=== PATIENT | male | born 1950 | race Hispanic/Latino ===

== ENCOUNTER 2025-02-13 10:44 | Inpatient (IN) | payer OTHER, SELFPAY ==
[2025-02-13 11:58] LABS: Absolute Lymphocytes (CBC) 1.0 K/uL (0.7-4.9); Hematocrit 31.2 % (39.6-49.0); Hemoglobin 8.5 g/dL (13.6-17.9); MCH 22.5 pg (27.0-35.0); MCHC 27.1 g/dL (32.0-36.0); MCV 83.1 fL (80-100); MPV 9.7 fL (7.6-11.3); Nucleated RBC Absolute Count 0.0 (0-0); Nucleated Red Blood Cells % 0.1 % (0-0); RBC Red Blood Cell Count 3.75 M/uL (4.33-5.43); White Blood Count 6.80 thou/uL (4.3-10.9)
[2025-02-13] MEDS ORDERED: NA CHLORIDE 0.9% 1,000 ML ONE ×2 (12:03→12:47)
[2025-02-13 12:12] LABS: Anion Gap 36.6 mEq/L (5.0-15.0); BUN Blood Urea Nitrogen 23 mg/dL (7-18); Glucose Level 1015 mg/dL (74-106); Potassium 5.6 mEq/L (3.5-5.1); Troponin High Sensitivity 9.3 pg/mL (<58.9)
[2025-02-13] MEDS ORDERED: GLUCAGON 1 MG/VIAL IM PRN (12:39)
[2025-02-13] MEDS ORDERED: D50W 25 GM/50 ML SYRINGE IV PRN (12:39)
--- NOTE | 2025-02-13 12:39 | ER ---
Nurse's Notes [facility] Name: Jasbir Valdez Age: 74 yrs Sex: Male : 1950 Arrival Date: 02/13/2025 Time: 10:44 Bed 8 Private MD: Diagnosis: Acute kidney failure, unspecified;Diabetes mellitus due to underlying condition with ketoacidosis without coma;Weakness Presentation: 02/13 11:39 Chief complaint: Patient states: pt was found by ABIODUN in bed, pt stated he had been kb4 there for 2 days, weak, and unable to do anything. Coronavirus screen: At this time, unable to obtain information related to travel outside the [place] Ebola Screen: No symptoms or risks identified at this time. Initial Sepsis Screen: Does the patient meet any 2 criteria? No. Patient's initial sepsis screen is negative. Does the patient have a suspected source of infection? No. Patient's initial sepsis screen is negative. Risk Assessment: Do you want to hurt yourself or someone else? Patient reports no desire to harm self or others. Onset of symptoms was February 11, 2025. 11:39 Method Of Arrival: EMS: [facility] kb4 11:39 Acuity: LEEANN 3 kb4 11:39 Care prior to arrival: Medication(s) given: Normal saline infusion, 1000 mL, IV kb4 initiated. 20 GA, in the left antecubital area. Triage Assessment: 11:49 General: Appears distressed, comfortable, Behavior is calm, cooperative. Pain: Denies kb4 pain. EENT:. Neuro: Level of Consciousness is awake, alert, obeys commands, Oriented to person, place, time, situation. Cardiovascular: Patient's skin is warm and dry. Respiratory: Airway is patent Respiratory effort is even, unlabored, Respiratory pattern is symmetrical, tachypnea. GI: Abdomen is round Bowel sounds present X 4 quads. :. Derm: Skin with poor turgor Skin is dry, Skin is pink, warm \T\ dry. Skin temperature is warm. Historical: - Allergies: 11:49 No Known Allergies; kb4 - PMHx: 11:49 Diabetes mellitus; kb4 - Immunization history:: Adult Immunizations unknown. - Infectious Disease History:: Denies. - Social history:: Smoking status: Patient denies any tobacco usage or history of. - Family history:: not pertinent. Screenin:08 [facility] ED Fall Risk Assessment (Adult) History of falling in the last 3 months, kb4 including since admission No falls in past 3 months (0 pts) Confusion or Disorientation No (0 pts) Intoxicated or Sedated No (0 pts) Impaired Gait No (0 pts) Mobility Assist Device Used No (0 pt) Altered Elimination Yes (1 pt) Score/Fall Risk Level 0 - 2 = Low Risk. Abuse screen: Denies threats or abuse. Denies injuries from another. Nutritional screening: No deficits noted. Tuberculosis screening: No symptoms or risk factors identified. Assessment: 11:51 Reassessment: see triage. kb4 13:30 Reassessment: Patient and/or family updated on plan of care and expected duration. Pain kb4 level reassessed. Patient is alert, oriented x 3, equal unlabored respirations, skin warm/dry/pink. insulin drip started - see med record. 14:37 Reassessment: Patient and/or family updated on plan of care and expected duration. Pain kb4 level reassessed. Patient is alert, oriented x 3, equal unlabored respirations, skin warm/dry/pink. resting in bed. 15:30 Reassessment: Patient and/or family updated on plan of care and expected duration. Pain kb4 level reassessed. Patient is alert, oriented x 3, equal unlabored respirations, skin warm/dry/pink. report called to ICU floor. Vital Signs: 11:39 BP 108 / 46; Pulse 75; Resp 32; Temp 97.7; Pulse Ox 100% on R/A; Weight 59.87 kg; kb4 Height 5 ft. 10 in. ; Pain 0/10; 12:00 BP 103 / 35; Pulse 71; Resp 28; Pulse Ox 100% on 4 lpm NC; kb4 13:00 BP 116 / 46; Pulse 79; Resp 30; Pulse Ox 100% on 4 lpm NC; kb4 14:36 BP 119 / 42; Pulse 90; Resp 28; Pulse Ox 100% on 4 lpm NC; kb4 11:39 Body Mass Index 18.94 (59.87 kg, 177.8 cm) kb4 11:39 Pain Scale: Adult kb4 NIH Stroke Scale Scores: 12:34 NIHSS Score: 0 minh ED Course: 11:15 Patient arrived in ED. [email or web address] 11:16 Alexys Murrell MD is Attending Physician. minh 11:29 Lindsay Galvan, RN is Primary Nurse. kb4 11:49 Triage completed. kb4 12:00 Inserted saline lock: 20 gauge in right upper arm, using aseptic technique. kb4 12:38 Jose Armando Ragsdale MD is Hospitalizing Provider. minh 12:45 XRAY Chest (1 view) In Process Unspecified. EDMS 12:59 CT Chest Abdomen Pelvis W/O Contrast In Process Unspecified. EDMS 16:07 Patient admitted, IV remains in place. kb4 16:07 No provider procedures requiring assistance completed. kb4 16:08 Patient has correct armband on for positive identification. Provided Education on: need kb4 for scott . 16:08 Arm band placed on. kb4 Administered Medications: 11:35 CANCELLED (Physician Discretion): ns 0.9% 500 ml 500 ml IV at 1 bolus once; to be given iw as a bolus over 30 minutes 12:11 Drug: NS 0.9% IV 1000 ml IV at 1000 ml once; to be given as a bolus over 60 minutes ap3 Route: IV; Rate: 1000 ml; Site: left forearm; 14:00 Follow up: Response: No adverse reaction kb4 15:00 Follow up: Response: No adverse reaction kb4 16:05 Follow up: IV Status: Completed infusion kb4 13:30 Drug: Insulin Drip - (Insulin Regular Human IVP 100 units, NS 0.9% IV 100 ml) IV at 5 kb4 units/hr continuous; Standard concentration 1unit/ml; Dose for DKA is 0.1 units/kg/hr {Co-Signature: aa5 (Mary Arellano RN).} {Note: started at 5 units/hr per MD .} Route: IV; Rate: 5 units/hr; Site: right upper arm; 15:00 Follow up: Increased rate to 10units/hr per protocol, glucose increased. aa5 13:33 Drug: Rocephin IV 1 grams IV at per protocol once; Given slow IV push per pharmacy kb4 instructions Route: IV; Rate: per protocol; Site: left antecubital; 16:05 Follow up: IV Status: Completed infusion kb4 13:34 Drug: Famotidine IVP 20 mg IVP once; dilute with 10 mL 0.9% NaCl; give over 2 minutes kb4 Route: IVP; Site: left antecubital; 14:00 Follow up: Response: No adverse reaction kb4 15:04 Drug: Insulin Regular Human IVP 6 units IVP once {Co-Signature: ap3 (Gerri Geronimo RN).} Route: IVP; Site: right upper arm; 16:04 Follow up: Response: No adverse reaction kb4 Medication: 16:08 VIS not applicable for this client. kb4 Intake: Outcome: 12:39 Decision to Hospitalize by Provider. minh 16:07 Admitted to ICU accompanied by nurse, via stretcher, on monitor, with chart, kb4 16:07 Condition: stable 16:07 Instructed on the need for admit, 16:09 Patient left the ED. kb4 NIH Stroke Scale - NIH Stroke Score Date: 02/13/2025 Time: 12:34 Total Score = 0 10. Dysarthria (speech clarity - read or repeat words) - 0(Normal) 11. Extinction and Inattention (visual/tactile/auditory/spatial/personal) - 0(No abnormality) 1a. Level of Consciousness (LOC) - 0(Alert) 1b. Level of Consciousness (LOC) (Month \T\ Age) - 0(Both) 1c. LOC Commands (Open \T\ Closes Eyes/[employer] Dean) - 0(Both) 2. Best Gaze (Lateral Gaze Paresis) - 0(Normal) 3. Visual Field Loss - 0(No visual loss) 4. Facial Palsy - 0(Normal) 5a. Left Arm: Motor (10-second hold) - 0(No drift) 5b. Right Arm: Motor (10-second hold) - 0(No drift) 6a. Left Leg: Motor (5-second hold - always test supine) - 0(No drift) 6b. Right Leg: Motor (5-second hold - always test supine) - 0(No drift) 7. Limb Ataxia (finger/nose \T\ heel/cardona - test with eyes open) - 0(Absent) 8. Sensory Loss (pinprick arms/legs/face) - 0(Normal) 9. Best Language: Aphasia (description/naming/reading) - 0(No aphasia) Initials: minh Signatures: Dispatcher [employer] Alexys Carroll MD MD cha Calderon, Audri RN RN aa5 Gerri Geronimo RN RN ap3 Lindsay Galvan RN RN kb4 Reyna Bronson cj3 Anushka Yang RN, Audri RN aa5 Gerri Geronimo RN ap3 Corrections: (The following items were deleted from the chart) 13:34 13:33 Rocephin IV 1 grams IV at per protocol in right antecubital kb4 kb4 13:35 13:34 Insulin Drip - (Insulin Regular Human IVP 100 units, NS 0.9% IV 100 ml) kb4 IV at 5 units/hr in right upper arm; started at 5 units/hr per MD kb4
--- NOTE | 2025-02-13 12:40 | EDPHYS ---
Physician Documentation [facility] Name: Jasbir Valdez Age: 74 yrs Sex: Male : 1950 Arrival Date: 02/13/2025 Time: 10:44 Bed 8 Private MD: ED Physician Alexys Murrell HPI: 02/13 12:30 This 74 yrs old Male presents to ER via EMS with complaints of General minh Weakness. 12:30 The patient or guardian reports hyperglycemia. Onset: The symptoms/episode minh began/occurred 3 day(s) ago. Associated signs and symptoms: Pertinent positives: nausea, polyuria. high glucose, weak , in bed x 3 days. The patient has experienced near-syncope, almost passed out, felt generally weak. Duration: This was a single episode, that is still ongoing. Associated injury: The patient did not suffer any apparent associated injury. Historical: - Allergies: 11:49 No Known Allergies; kb4 - PMHx: 11:49 Diabetes mellitus; kb4 - Immunization history:: Adult Immunizations unknown. - Infectious Disease History:: Denies. - Social history:: Smoking status: Patient denies any tobacco usage or history of. - Family history:: not pertinent. ROS: 12:30 Constitutional: Negative for fever, chills, and weight loss, Eyes: Negative for injury, minh pain, redness, and discharge, ENT: Negative for injury, pain, and discharge, Neck: Negative for injury, pain, and swelling, Cardiovascular: Negative for chest pain, palpitations, and edema, Respiratory: Negative for shortness of breath, cough, wheezing, and pleuritic chest pain, Abdomen/GI: Negative for abdominal pain, nausea, vomiting, diarrhea, and constipation, Back: Negative for injury and pain, : Negative for injury, bleeding, discharge, and swelling, MS/Extremity: Negative for injury and deformity, Skin: Negative for injury, rash, and discoloration, Psych: Negative for depression, anxiety, suicide ideation, homicidal ideation, and hallucinations, Allergy/Immunology: Negative for hives, rash, and allergies, Hematologic/Lymphatic: Negative for swollen nodes, abnormal bleeding, and unusual bruising, 12:30 Neuro: Positive for dizziness, weakness, 12:30 Endocrine: Positive for polyuria, weight loss, Exam: 12:30 Constitutional: This is a well developed, well nourished patient who is awake, alert, minh and in no acute distress. Head/Face: Normocephalic, atraumatic. Eyes: Pupils equal round and reactive to light, extra-ocular motions intact. Lids and lashes normal. Conjunctiva and sclera are non-icteric and not injected. Cornea within normal limits. Periorbital areas with no swelling, redness, or edema. ENT: Nares patent. No nasal discharge, no septal abnormalities noted. Tympanic membranes are normal and external auditory canals are clear. Oropharynx with no redness, swelling, or masses, exudates, or evidence of obstruction, uvula midline. Mucous membranes moist. Neck: Trachea midline, no thyromegaly or masses palpated, and no cervical lymphadenopathy. Supple, full range of motion without nuchal rigidity, or vertebral point tenderness. No Meningismus. Chest/axilla: Normal chest wall appearance and motion. Nontender with no deformity. No lesions are appreciated. Cardiovascular: Regular rate and rhythm with a normal S1 and S2. No gallops, murmurs, or rubs. Normal PMI, no JVD. No pulse deficits. Respiratory: Lungs have equal breath sounds bilaterally, clear to auscultation and percussion. No rales, rhonchi or wheezes noted. No increased work of breathing, no retractions or nasal flaring. Abdomen/GI: Soft, non-tender, with normal bowel sounds. No distension or tympany. No guarding or rebound. No evidence of tenderness throughout. Back: No spinal tenderness. No costovertebral tenderness. Full range of motion. Male : Normal genitalia with no discharge or lesions. Skin: Warm, dry with normal turgor. Normal color with no rashes, no lesions, and no evidence of cellulitis. MS/ Extremity: Pulses equal, no cyanosis. Neurovascular intact. Full, normal range of motion., bilateral aka Neuro: Awake and alert, GCS 15, oriented to person, place, time, and situation. Cranial nerves II-XII grossly intact. Motor strength 5/5 in all extremities. Sensory grossly intact. Cerebellar exam normal. Normal gait. Psych: Awake, alert, with orientation to person, place and time. Behavior, mood, and affect are within normal limits. 12:30 ECG was reviewed by the Attending Physician. Vital Signs: 11:39 BP 108 / 46; Pulse 75; Resp 32; Temp 97.7; Pulse Ox 100% on R/A; Weight 59.87 kg; kb4 Height 5 ft. 10 in. ; Pain 0/10; 12:00 BP 103 / 35; Pulse 71; Resp 28; Pulse Ox 100% on 4 lpm NC; kb4 13:00 BP 116 / 46; Pulse 79; Resp 30; Pulse Ox 100% on 4 lpm NC; kb4 14:36 BP 119 / 42; Pulse 90; Resp 28; Pulse Ox 100% on 4 lpm NC; kb4 11:39 Body Mass Index 18.94 (59.87 kg, 177.8 cm) kb4 11:39 Pain Scale: Adult kb4 NIH Stroke Scale Scores: 12:34 NIHSS Score: 0 minh MDM: 11:16 Medical Screening Exam initiated minh 12:33 Differential diagnosis: diabetes insipidus, DKA, hyperglycemia. Differential Diagnosis minh altered mental status, sepsis, flu. Differential Diagnosis: cardiac arrhythmia, emotional response, idiopathic syncope, pseudo seizure, seizure, sepsis, transient ischemic attack, vasovagal episode. Data reviewed: vital signs, nurses notes, lab test result(s), EKG, radiologic studies, plain films. Consideration of Admission/Observation Patient was admitted/placed on observation. Escalation of care including admission/observation considered. I considered the following discharge prescriptions or medication management in the emergency department Medications were administered in the Emergency Department. See MAR. Independent interpretation of the following test(s) in the Emergency Department EKG: See my EKG interpretation above. Test considered but Not performed: MRI: no mri brain. 02/13 11:29 Order name: Basic Metabolic Panel; Complete Time: 12:23 kb4 02/13 11:29 Order name: CBC with Diff; Complete Time: 12:23 kb4 02/13 11:29 Order name: Troponin HS; Complete Time: 12:23 4 02/13 11:34 Order name: Lipase; Complete Time: 15:13 [facility] 02/13 11:34 Order name: UA Rfx Stephen Cult if indicated [facility] 02/13 11:44 Order name: Glucose, Ancillary Testing; Complete Time: 11:57 EDMS 02/13 12:22 Order name: ABG; Complete Time: 15:13 [facility] 02/13 12:22 Order name: BETA HYDROXYBUTYRATE; Complete Time: 15:13 [facility] 02/13 12:27 Order name: Blood Culture Adult (2) [facility] 02/13 12:27 Order name: Lactate w/ 2H reflex if indic.; Complete Time: 15:13 minh 02/13 13:09 Order name: Basic Metabolic Panel EDMS 02/13 13:09 Order name: Basic Metabolic Panel; Complete Time: 15:13 EDMS 02/13 13:09 Order name: Basic Metabolic Panel EDMS 02/13 13:09 Order name: Basic Metabolic Panel EDMS 02/13 13:09 Order name: Basic Metabolic Panel EDMS 02/13 13:09 Order name: Basic Metabolic Panel EDMS 02/13 13:09 Order name: Basic Metabolic Panel EDMS 02/13 13:09 Order name: Calcium Level EDMS 02/13 13:09 Order name: Calcium Level EDMS 02/13 13:09 Order name: Calcium Level EDMS 02/13 13:09 Order name: Calcium Level EDMS 02/13 13:09 Order name: Calcium Level EDMS 02/13 13:09 Order name: Calcium Level EDMS 02/13 13:09 Order name: Calcium Level EDMS 02/13 13:09 Order name: CBC with Automated Diff EDMS 02/13 13:09 Order name: CBC with Automated Diff EDMS 02/13 13:09 Order name: CBC with Automated Diff EDMS 02/13 13:09 Order name: Lipid Profile EDMS 02/13 13:09 Order name: Lipid Profile EDMS 02/13 13:09 Order name: Magnesium EDMS 02/13 13:09 Order name: Magnesium EDMS 02/13 13:09 Order name: Magnesium EDMS 02/13 13:09 Order name: Magnesium EDMS 02/13 13:09 Order name: Phosphorus EDMS 02/13 13:09 Order name: Phosphorus EDMS 02/13 13:09 Order name: Phosphorus EDMS 02/13 13:09 Order name: Phosphorus EDMS 02/13 13:09 Order name: CBC with Automated Diff EDMS 02/13 13:09 Order name: Osmolality, Serum EDMS 02/13 13:09 Order name: Osmolality, Serum EDMS 02/13 13:09 Order name: Osmolality, Serum EDMS 02/13 13:09 Order name: Osmolality, Serum EDMS 02/13 13:23 Order name: Glucose kb4 02/13 13:56 Order name: Hemoglobin A1c EDMS 02/13 14:18 Order name: Ghost Lactate-NO COLLECT Timer [facility] 02/13 14:39 Order name: Glucose sp 02/13 11:29 Order name: XRAY Chest (1 view); Complete Time: 15:13 kb4 02/13 12:24 Order name: CT Chest Abdomen Pelvis W/O Contrast; Complete Time: 15:13 minh 02/13 11:29 Order name: EKG; Complete Time: 11:30 kb4 02/13 13:09 Order name: CONS Diabetic Education Consul [facility] 02/13 13:09 Order name: Dietitian Consult [facility] 02/13 11:29 Order name: Cardiac monitoring; Complete Time: 11:29 kb4 02/13 11:29 Order name: EKG - Nurse/Tech; Complete Time: 11:29 kb4 02/13 11:29 Order name: IV Saline Lock; Complete Time: 11:29 kb4 02/13 11:29 Order name: Labs collected and sent; Complete Time: 11:35 kb4 02/13 11:29 Order name: O2 Per Protocol; Complete Time: 11:29 kb4 02/13 11:29 Order name: O2 Sat Monitoring; Complete Time: 11:29 kb4 02/13 12:23 Order name: IV Saline Lock - Large Bore; Complete Time: 12:30 minh EC:30 Rate is 76 beats/min. Rhythm is regular. QRS [place] is Normal. NM interval is normal. QRS minh interval is normal. QT interval is normal. No Q waves. T waves are Normal. No ST changes noted. Clinical impression: NSR w/ Non-specific ST/T Changes and No evidence of ischemia. Interpreted by me. Reviewed by me. Administered Medications: 11:35 CANCELLED (Physician Discretion): ns 0.9% 500 ml 500 ml IV at 1 bolus once; to be given iw as a bolus over 30 minutes 12:11 Drug: NS 0.9% IV 1000 ml IV at 1000 ml once; to be given as a bolus over 60 minutes ap3 Route: IV; Rate: 1000 ml; Site: left forearm; 14:00 Follow up: Response: No adverse reaction kb4 15:00 Follow up: Response: No adverse reaction kb4 16:05 Follow up: IV Status: Completed infusion kb4 13:30 Drug: Insulin Drip - (Insulin Regular Human IVP 100 units, NS 0.9% IV 100 ml) IV at 5 kb4 units/hr continuous; Standard concentration 1unit/ml; Dose for DKA is 0.1 units/kg/hr {Co-Signature: aa5 (Mary Arellano RN).} {Note: started at 5 units/hr per MD .} Route: IV; Rate: 5 units/hr; Site: right upper arm; 15:00 Follow up: Increased rate to 10units/hr per protocol, glucose increased. aa5 13:33 Drug: Rocephin IV 1 grams IV at per protocol once; Given slow IV push per pharmacy kb4 instructions Route: IV; Rate: per protocol; Site: left antecubital; 16:05 Follow up: IV Status: Completed infusion 4 13:34 Drug: Famotidine IVP 20 mg IVP once; dilute with 10 mL 0.9% NaCl; give over 2 minutes kb4 Route: IVP; Site: left antecubital; 14:00 Follow up: Response: No adverse reaction 4 15:04 Drug: Insulin Regular Human IVP 6 units IVP once {Co-Signature: ap3 (Gerri Geronimo RN).} Route: IVP; Site: right upper arm; 16:04 Follow up: Response: No adverse reaction kb4 Disposition Summary: 02/13/25 12:39 Hospitalization Ordered Notes: Hospitalization Status: Inpatient Admission minh Provider: Jose Armando Ragsdale cha Location: Intensive Care Unit minh Condition: Fair minh Problem: new minh Symptoms: have improved minh Bed/Room Type: Standard [facility] Room Assignment: 4-(02/13/25 13:32) sp Diagnosis - Acute kidney failure, unspecified minh - Diabetes mellitus due to underlying condition with 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 Total time: 50 minutes NIH Stroke Scale - NIH Stroke Score Date: 02/13/2025 Time: 12:34 Total Score = 0 10. Dysarthria (speech clarity - read or repeat words) - 0(Normal) 11. Extinction and Inattention (visual/tactile/auditory/spatial/personal) - 0(No abnormality) 1a. Level of Consciousness (LOC) - 0(Alert) 1b. Level of Consciousness (LOC) (Month \T\ Age) - 0(Both) 1c. LOC Commands (Open \T\ Closes Eyes/Windows And Doors Installer) - 0(Both) 2. Best Gaze (Lateral Gaze Paresis) - 0(Normal) 3. Visual Field Loss - 0(No visual loss) 4. Facial Palsy - 0(Normal) 5a. Left Arm: Motor (10-second hold) - 0(No drift) 5b. Right Arm: Motor (10-second hold) - 0(No drift) 6a. Left Leg: Motor (5-second hold - always test supine) - 0(No drift) 6b. Right Leg: Motor (5-second hold - always test supine) - 0(No drift) 7. Limb Ataxia (finger/nose \T\ heel/cardona - test with eyes open) - 0(Absent) 8. Sensory Loss (pinprick arms/legs/face) - 0(Normal) 9. Best Language: Aphasia (description/naming/reading) - 0(No aphasia) Initials: minh Signatures: Dispatcher [employer] EDMS Alexys Murrell MD MD cha Pinkerton, Shawna sp Calderon, Audri, RAHEEM RN aa5 Gerri Geronimo RN RN ap3 Archana Handley PA-C PA-C sb4 Lindsay Galvan RN RN kb4 Anushka Yang RN, Audri RN aa5 Gerri Geronimo RN ap3 Corrections: (The following items were deleted from the chart) 11:35 11:34 NS 0.9% IV 500 ml 500 ml IV at 1 bolus once; to be given as a bolus over iw 30 minutes ordered. [facility] 13:32 12:39 minh sp
[2025-02-13] MEDS ORDERED: FAMOTIDINE 20 MG/2 ML VIAL IV ONE (12:47)
[2025-02-13] MEDS ORDERED: CEFTRIAXONE 1000 MG/VIAL ONE (12:47)
[2025-02-13] MEDS ORDERED: NA CHLORIDE 0.9% 50 ML ONE (12:47)
[2025-02-13] MEDS: NA CHLORIDE 0.9% 1,000 ML IV ONE (13:02)
[2025-02-13] MEDS ORDERED: ONDANSETRON 4 MG/2 ML VIAL IV PRN (13:02)
[2025-02-13 13:19] LABS: Arterial Blood Carboxyhemoglob 2.2 % (0.0-1.5); Blood Gas Inspired Oxygen 36.0 %; Blood Gas Oxyhemoglobin 97.8 % (94.0-97.0); Blood O2 Saturation 99.2 % (92.0-98.5)
--- NOTE | 2025-02-13 13:41 | RAD REPORT ---
EXAM: CT CHEST, ABDOMEN AND PELVIS WITHOUT CONTRAST CLINICAL INDICATION: Cough and abdominal pain TECHNIQUE: CT chest, abdomen and pelvis was performed, without IV contrast, as per department protoco l. Axial, sagittal and coronal reconstructions were obtained. One or more of the following dose reduction techniques were used: Automated exposure control, adjustment of the mA and/or kV according to the patient size, and/or iterative reconstruction. Unless otherwise specified, incidental findings do not require dedicated imaging follow-up. The lack of IV and oral contrast limits evaluation of the mediastinum, mau, vessels, organs and rick l. COMPARISON: None FINDINGS: Lungs are clear. Old rib fractures Moderate hiatal hernia. Coronary arterial calcifications. No mediastinal or hilar lymphadenopathy seen. No pleural effusion. No pericardial effusion. Liver, spleen, pancreas, adrenals kidneys and bladder appear grossly normal There is no evidence of diverticulitis Large amount of stool present throughout the colon. Marked compression fracture T7 vertebral body. Partial fusion with T6 vertebral body. Bridging osteop hytes between T6 and T8 anteriorly. This likely is an old fracture. 7.2 cm fatty mass left anterior subcutaneous tissues at the level of the iliac crest contains increas ed density in the central portion. 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 Well-differentiated liposarcoma is another consideration. MRI with contrast would be helpful to determine if there is abnormal enhancement
--- NOTE | 2025-02-13 13:47 | P.HP ---
Certification for Inpatient Patient admitted to: Inpatient With expected LOS: >2 Midnights Patient will require the following post-hospital care: None Practitioner: I am a practitioner with admitting privileges, knowledge of patient current condition, hospital course, and medical plan of care. Services: Services provided to patient in accordance with Admission requirements found in Title 42 Section 412.3 of the Code of Federal Regulations <Francisco Bolden - Last Filed: 02/13/25 13:41> Patient History Date of Service: 02/13/25 Reason for admission: DKA History of Present Illness: Jasbir Valdez is a 74-year-old male with a history of diabetes who presented via EMS with symptoms of hyperglycemia that began 3 days prior to presentation. Patient reported onset of nausea, polyuria, weakness, and markedly elevated glucose levels. The symptoms progressively worsened over the 3-day period, with patient spending most of the time confined to bed due to severe weakness and fatigue. Patient experienced an episode where he nearly lost consciousness but did not sustain any fall or injury. Patient reported significant functional decline, stating he had not eaten or consumed fluids since the onset of symptoms 3 days ago. Patient endorsed polyuria and unintentional weight loss during this period. Patient reported dizziness and profound weakness as prominent symptoms. Patient denied any precipitating factors or recent illness. Patient's home diabetes management consists of 30 units of long-acting insulin administered once daily, with no short-acting insulin or oral antidiabetic medications. Home medications list reviewed: Yes - Past Medical/Surgical History Has patient received pneumonia vaccine in the past: No Diabetic: Yes Past Surgical History: Patient denies surgical history - Family History Family History: Reviewed- Non-Contributory - Social History Smoking Status: Never smoker Alcohol use: No CD- Drugs: No Caffeine use: Yes Place of Residence: Home <Francisco Bolden - Last Filed: 02/13/25 13:41> Date of Service: 02/13/25 <Jose Armando Ragsdale - Last Filed: 02/26/25 00:53> Allergies No Known Allergies Allergy (Unverified 02/13/25 12:39) Home Medications: Insulin Glargine,Hum.rec.anlog [Semglee] 30 unit SQ DAILY #10 ml 02/14/25 Review of Systems 10-point ROS is otherwise unremarkable <Francisco Bolden - Last Filed: 02/13/25 13:41> Physical Examination - Physical Exam General: Alert, Oriented x3, Cooperative, Cachectic, Mild distress HEENT: Atraumatic, Normocephalic, Other (Dry mucous membranes, white residue on tongue ) Neck: Supple, JVD not distended, No Thyromegaly Respiratory: Clear to auscultation bilaterally, Normal air movement Cardiovascular: No edema, Normal pulses, Regular rate/rhythm, Normal S1 S2 Capillary refill: <2 Seconds Gastrointestinal: Normal bowel sounds, Soft and benign, Non-distended, W/out hepatosplenomegaly, No ascites, No tenderness, No masses, No rebound, No guarding, Other (LLQ hernia) Musculoskeletal: No clubbing, No swelling, No contractures, No erythema, No tenderness, No warmth Integumentary: No rashes, No breakdown, No significant lesion, No tenderness/swelling, No erythema, No warmth, No cyanosis Neurological: Normal speech, Normal tone, Sensation intact, Cranial nerves 3-12 intact, Normal affect - Studies Laboratory Data (last 24 hrs) 02/13/25 02/13/25 02/13/25 12:50 11:34 11:34 WBC 6.80 Hgb 8.5 L Hct 31.2 L Plt Count 378 Sodium 128 L Potassium 5.6 H BUN 23 H Creatinine 1.66 H Glucose 1015 H* Lipase 11 L <Francisco Bolden - Last Filed: 02/13/25 13:41> Assessment and Plan - Plan Assessment: A 74-year-old male presented with symptoms of hyperglycemia, including nausea, polyuria, weakness, and significant weight loss, with a [id number] glucose reading of over 500. He was diagnosed with diabetic ketoacidosis (DKA), acute kidney failure, and high anion gap metabolic acidosis, and was admitted to the ICU for continuous monitoring and treatment, including IV fluids, insulin drip, and electrolyte replacement. Plan: Diabetic Ketoacidosis (DKA): [facility] BHB pending, will follow ABG with pH of 7.19, pCO2 of 11, bicarb 4.1 Lactate pending will follow - Patient admitted to ICU for close monitoring and aggressive management. - Initiated insulin drip with titration per protocol. - Fluid resuscitation with total of 4 liters normal saline bolus administered - followed by half normal saline at 250 mL per hour given patient's hyponatremia. - Electrolyte replacement protocols initiated including magnesium, phosphorus, and potassium replacement. Hourly glucose monitoring and input/output measurements. Basic metabolic panels every 4 hours until anion gap closure. - Hypoglycemic protocol in place for safety. - Zofran every 6 hours as needed for nausea. - Carb controlled diet, advance as tolerated Glargine 20 units ordered Transition to phase 2 DKA protocol once blood glucose under 200 and anion gap less than 12 Hyponatremia Hyperkalemia. - Sodium 128 , baseline unknown. - Potassium 5.6 - Half NS at 250 mL/h, add K IVF if hypokalemia occurs -Monitor BMP as noted above -Monitor fluid status -Consider nephrology consult if not improving Telemetry monitoring continuous Acute Kidney Injury: Likely secondary to dehydration and DKA. - Creatinine 1.66 and BUN of 23 on admission - Monitoring with daily creatinine and BUN. - Adequate fluid resuscitation as above. Anemia, normocytic, hypochromic - Hemoglobin 8.5 g/dL, hematocrit 31.2%. - Iron studies ordered, will follow - Daily CBC monitoring. - Plan to transfuse for hemoglobin less than 7 - Etiology to be determined. Insulin-dependent diabetes Diabetic education consult ordered for medication compliance and diabetes self-management. Dietitian consult for nutritional counseling. A1c ordered Glargine 20 units daily ordered Insulin drip as noted above Infection Workup Ceftriaxone 1 gram daily initiated empirically. Urinalysis will reflex to UA collected, will follow Blood cultures pending. Chest x-ray pending, will follow CTAP pending, will follow-up Monitoring for source of potential precipitating infection. Dispo: Anticipate home and new needs Gap closure DVT prophylaxis: Heparin 5000 3 times daily Diet: diabetic Code Status: Full Code Discharge Plan: Home Plan to discharge in: 48 Hours - Advance Directives Does patient have a Living Will: No Does patient have a Durable POA for Healthcare: No - Code Status/Comfort Care Code Status Assessed: Yes Code Status: Full Code Critical Care: Yes Time Spent Managing Pts Care (In Minutes): 79 <Francisco Bolden - Last Filed: 02/13/25 13:41> Date of Service: 02/13/25 Patient was seen and examined. Events of the last 24 hours have been noted. Spoke with with MIRNA regarding patient's clinical picture after evaluating and examining the patient independently. I performed a substantial part of the MDM during this patient's care today. I personally made or approved the documented management plan and acknowledge its risk of complications. I agree with the findings and documentation provided in the MIRNA's notes. <Jose Armando Ragsdale - Last Filed: 02/26/25 00:53>
--- NOTE | 2025-02-13 13:53 | RAD REPORT ---
Procedure: Chest Single View HISTORY: Cough COMPARISON: none FINDINGS: The lungs appear clear of acute infiltrate. Bilateral nipple shadows present. Moderate hiatal hernia. Old rib fractures. No significant pleural effusion noted. The heart is normal size. IMPRESSION: No acute abnormality is displayed.
[2025-02-13 14:42] LABS: Anion Gap 37.7 mEq/L (5.0-15.0); BUN Blood Urea Nitrogen 26 mg/dL (7-18); Potassium 5.7 mEq/L (3.5-5.1)
[2025-02-13 14:45] LABS: Glucose Level 1109 mg/dL (74-106)
[2025-02-13] MEDS ORDERED: INSULIN REGULAR (HUMAN) 100 UNIT/ML ONE (15:00)
[2025-02-13 17:10] LABS: Ferritin 14.4 ng/mL (26-388); Transferrin 250 mg/dL (200-360)
[2025-02-13] MEDS: NYSTATIN 500,000 UNIT/5 ML UDC PO SCH (17:10)
[2025-02-13] MEDS: NACHLORIDE 0.45% 1,000 ML IV SCH (17:10)
[2025-02-13 17:11] LABS: Glucose Level 814 mg/dL (74-106); Iron < 10.0 ug/dL (65-175)
[2025-02-13 17:27] VITALS: BMI 18.9
[2025-02-13 18:07] LABS: Anion Gap 28.0 mEq/L (5.0-15.0); BUN Blood Urea Nitrogen 25.0 mg/dL (7-18); Glucose Level 762.0 mg/dL (74-106)
[2025-02-13 18:12] LABS: Potassium 4.0 mEq/L (3.5-5.1)
[2025-02-13 18:21] LABS: ALT/SGPT 89 U/L (16-61); Albumin 3.3 g/dL (3.4-5.0); Albumin/Globulin Ratio 0.9 (1.1-1.8); Alkaline Phosphatase 213 U/L (45-117); Globulin 3.5 g/dL (2.3-3.5)
[2025-02-13 18:22] LABS: AST/SGOT 28 U/L (15-37); Bilirubin Indirect, Calculated 0.2 mg/dL (0.2-0.8)
[2025-02-13 18:23] LABS: Glucose Level 765 mg/dL (74-106)
[2025-02-13] MEDS: INSULIN REGULAR, HUMAN 100 UNIT in NA CHLORIDE 0.9% 100 ML IV SCH (18:45)
[2025-02-13 19:38] VITALS: O2SAT 100
[2025-02-13] MEDS: HEPARIN 5000 UNIT/ML 1 ML VIAL SQ SCH (20:30)
[2025-02-13 21:56] LABS: Anion Gap 16.6 mEq/L (5.0-15.0); BUN Blood Urea Nitrogen 21.0 mg/dL (7-18); Glucose Level 282.0 mg/dL (74-106); Potassium 3.6 mEq/L (3.5-5.1)
[2025-02-13] MEDS: D5 0.45 NS 1,000 ML IV SCH (23:34)
[2025-02-14 01:31] LABS: Anion Gap 9.4 mEq/L (5.0-15.0); BUN Blood Urea Nitrogen 21.0 mg/dL (7-18); Glucose Level 205.0 mg/dL (74-106); Potassium 3.4 mEq/L (3.5-5.1)
[2025-02-14] MEDS ORDERED: D10W 125 ML IV PRN (02:16)
[2025-02-14] MEDS ORDERED: GLUCAGON 1 MG/VIAL IM PRN (02:16)
[2025-02-14] MEDS: INSULIN GLARGINE 100 UNIT/ML SQ ONE (02:32)
[2025-02-14 07:20] LABS: Absolute Lymphocytes (CBC) 1.7 K/uL (0.7-4.9); Hematocrit 26.6 % (39.6-49.0); Hemoglobin 8.2 g/dL (13.6-17.9); MCH 22.9 pg (27.0-35.0); MCHC 30.6 g/dL (32.0-36.0); MCV 74.7 fL (80-100); MPV 8.4 fL (7.6-11.3); Nucleated RBC Absolute Count 0.0 (0-0); Nucleated Red Blood Cells % 0.1 % (0-0); RBC Red Blood Cell Count 3.57 M/uL (4.33-5.43); White Blood Count 9.60 thou/uL (4.3-10.9)
[2025-02-14 07:26] LABS: Anion Gap 9.6 mEq/L (5.0-15.0); BUN Blood Urea Nitrogen 19.0 mg/dL (7-18); Glucose Level 169.0 mg/dL (74-106); HDL Cholesterol 57.0 mg/dL (40-60); LDL Cholesterol, Calculated 41.0 mg/dL (<130); LDL Cholesterol,Calc NonReport 41.0; Magnesium 1.9 mg/dL (1.6-2.4); Potassium 3.6 mEq/L (3.5-5.1)
[2025-02-14] MEDS: FLU (Fluarix) 25-26 (6MOS UP)/PF 45 MCG/0.5 ML Syringe IM ONE (07:30)
[2025-02-14] MEDS: INSULIN REGULAR (HUMAN) 100 UNIT/ML SQ SCH (08:21)
[2025-02-14] MEDS: POTASSIUM CL SA 10 MEQ TAB PO ONE (08:21)
[2025-02-14] MEDS: CEFTRIAXONE 1,000 MG in NA CHLORIDE 0.9% 50 ML IVPB SCH (08:22)
[2025-02-14 09:13] VITALS: TEMP 97.3
[2025-02-14 10:00] LABS: Anion Gap 9.4 mEq/L (5.0-15.0); BUN Blood Urea Nitrogen 18.0 mg/dL (7-18); Glucose Level 157.0 mg/dL (74-106)
[2025-02-14 10:05] LABS: Potassium 4.4 mEq/L (3.5-5.1)
--- NOTE | 2025-02-14 10:08 | P.DS ---
Admission Date: 02/13/25 Discharge Date: 02/14/25 Reason for Admission: DKA Consultations: None Procedures: None Brief History of Present Illness: Jasbir Valdez is a 74-year-old male with a history of diabetes who presented via EMS with symptoms of hyperglycemia that began 3 days prior to presentation. Patient reported onset of nausea, polyuria, weakness, and markedly elevated glucose levels. The symptoms progressively worsened over the 3-day period, with patient spending most of the time confined to bed due to severe weakness and fatigue. Patient experienced an episode where he nearly lost consciousness but did not sustain any fall or injury. Patient reported significant functional decline, stating he had not eaten or consumed fluids since the onset of symptoms 3 days ago. Patient endorsed polyuria and uninten tional weight loss during this period. Patient reported dizziness and profound weakness as prominent symptoms. Patient denied any precipitating factors or recent illness. Patient's home diabetes management consists of 30 units of long- acting insulin administered once daily, with no short-acting insulin or oral antidiabetic medications. Hospital Course: Diabetic ketoacidosis (Type 1 DM): Hospital course notable for closure of the anion gap since approximately 1:00 a.m after starting 20 units long-acting insulin previous day and insulin drip titrated to hospital protocol. Additional dose of long-acting insulin 10 units given at approximately 2 AM. Today he is clinically improved, sitting up in bed on room air without distress, tolerating breakfast, and denying abdominal pain, nausea, or vomiting. Morning glucose 169 mg/dL before breakfast. Electrolytes and acid-base have normalized with anion gap 9.6 and CO2 25. He reports having insulin at home with plenty of refills and plans to return to work tomorrow. Will suspend insulin refills to pharmacy on file as medication summary shows no fills within the last 12 months. Acute kidney injury, resolved: Creatinine 1.66 on admission, improved to 1.3 mg/dL with clinical recovery; no ongoing uremic symptoms. Corrected with aggressive IV fluid hydration for DKA. Encouraged adequate oral hydration; avoided nephrotoxins. No further inpatient intervention required. Electrolytes/acidbase: Corrected with aggressive IV fluid hydration. Sodium 141 mmol/L, potassium 3.6 mmol/L, CO2 25 mmol/L, anion gap 9.6, magnesium 1.9 mg/dL. Iron deficiency anemia: Iron studies consistent with iron deficiency anemia. B12 level 556 and lipid panel unremarkable. Recommend follow-up with PCP for further evaluation and management of iron deficiency anemia (assessment for source of blood loss and treatment planning). B12 adequate; lipid panel unremarkable. Disposition: Clinically stable, tolerating oral intake, anion gap closed since ~1:00 a.m., and no acute complaints. Ensure patient has insulin supply and refills on discharge and clear return precautions. <Francisco Bolden - Last Filed: 02/14/25 10:06> Admission Date: 02/13/25 Discharge Date: 02/14/25 Hospital Course: Patient was seen and examined. Events of the last 24 hours have been noted. Spoke with with MIRNA regarding patient's clinical picture after evaluating and examining the patient independently. I performed a substantial part of the MDM during this patient's care today. I personally made or approved the documented management plan and acknowledge its risk of complications. I agree with the findings and documentation provided in the MIRNA's notes. <Jose Armando Ragsdale - Last Filed: 02/26/25 00:54> Disposition: ROUTINE DISCHARGE Discharge Condition: GOOD Vital Signs/Physical Exam: Temp Pulse Resp BP Pulse Ox 97.3 F 66 15 121/62 100 02/14/25 08:00 02/14/25 10:00 02/14/25 10:00 02/14/25 10:00 02/14/25 10:00 General: Alert, In no apparent distress, Oriented x3, Cooperative HEENT: Atraumatic, Normocephalic, Mucous membr. moist/pink Neck: Supple, JVD not distended Respiratory: Clear to auscultation bilaterally, Normal air movement Cardiovascular: No edema, Normal pulses, Regular rate/rhythm, Normal S1 S2 Capillary refill: <2 Seconds Gastrointestinal: Normal bowel sounds, Soft and benign, Non-distended Musculoskeletal: No clubbing, No swelling, No contractures Integumentary: No rashes, No breakdown, No significant lesion Neurological: Normal speech, Normal strength at 5/5 x4 extr, Normal tone, Sensation intact, Cranial nerves 3-12 intact, Normal affect Laboratory Data at Discharge: WBC 9.60 thou/uL (4.3-10.9) 02/14/25 06:43 Hgb 8.2 g/dL (13.6-17.9) L 02/14/25 06:43 Hct 26.6 % (39.6-49.0) L 02/14/25 06:43 Plt Count 356 thou/uL (152-406) 02/14/25 06:43 Sodium 141 mEq/L (136-145) 02/14/25 09:24 Potassium 4.4 mEq/L (3.5-5.1) D 02/14/25 09:24 BUN 18 mg/dL (7-18) 02/14/25 09:24 Creatinine 1.36 mg/dL (0.70-1.30) H 02/14/25 09:24 Glucose 157 mg/dL (74-106) H 02/14/25 09:24 Phosphorus 2.2 mg/dL (2.5-4.9) L 02/14/25 06:43 Magnesium 1.9 mg/dL (1.6-2.4) 02/14/25 06:43 Total Bilirubin 0.4 mg/dL (0.2-1.0) 02/13/25 17:15 AST 28 U/L (15-37) 02/13/25 17:15 ALT 89 U/L (16-61) H 02/13/25 17:15 Alkaline Phosphatase 213 U/L (45-117) H 02/13/25 17:15 Triglycerides 100 mg/dL (<150) 02/14/25 06:43 Cholesterol 118 mg/dL (<200) 02/14/25 06:43 HDL Cholesterol 57 mg/dL (40-60) 02/14/25 06:43 Cholesterol/HDL Ratio 2.07 02/14/25 06:43 Lipase 11 U/L (13-75) L 02/13/25 12:50 <Francisco Bolden - Last Filed: 02/14/25 10:06> Vital Signs/Physical Exam: Temp Pulse Resp BP Pulse Ox 97.3 F 65 14 128/66 100 02/14/25 08:00 02/14/25 11:00 02/14/25 11:00 02/14/25 11:00 02/14/25 11:00 General: Alert, In no apparent distress, Oriented x3 Laboratory Data at Discharge: WBC 9.60 thou/uL (4.3-10.9) 02/14/25 06:43 Hgb 8.2 g/dL (13.6-17.9) L 02/14/25 06:43 Hct 26.6 % (39.6-49.0) L 02/14/25 06:43 Plt Count 356 thou/uL (152-406) 02/14/25 06:43 Sodium 141 mEq/L (136-145) 02/14/25 09:24 Potassium 4.4 mEq/L (3.5-5.1) D 02/14/25 09:24 BUN 18 mg/dL (7-18) 02/14/25 09:24 Creatinine 1.36 mg/dL (0.70-1.30) H 02/14/25 09:24 Glucose 157 mg/dL (74-106) H 02/14/25 09:24 Phosphorus 2.2 mg/dL (2.5-4.9) L 02/14/25 06:43 Magnesium 1.9 mg/dL (1.6-2.4) 02/14/25 06:43 Total Bilirubin 0.4 mg/dL (0.2-1.0) 02/13/25 17:15 AST 28 U/L (15-37) 02/13/25 17:15 ALT 89 U/L (16-61) H 02/13/25 17:15 Alkaline Phosphatase 213 U/L (45-117) H 02/13/25 17:15 Triglycerides 100 mg/dL (<150) 02/14/25 06:43 Cholesterol 118 mg/dL (<200) 02/14/25 06:43 HDL Cholesterol 57 mg/dL (40-60) 02/14/25 06:43 Cholesterol/HDL Ratio 2.07 02/14/25 06:43 Lipase 11 U/L (13-75) L 02/13/25 12:50 <Jose Armando Ragsdale - Last Filed: 02/26/25 00:54> Diet: ADA Activity: Ad irena Time spent managing pt's care (in minutes): 33 <Francisco Bolden - Last Filed: 02/14/25 10:06> Time spent managing pt's care (in minutes): 35 <Jose Armando Ragsdale - Last Filed: 02/26/25 00:54> Home Medications: Insulin Glargine,Hum.rec.anlog [Semglee] 30 unit SQ DAILY #10 ml 02/14/25 New Medications: Insulin Glargine,Hum.rec.anlog [Semglee] 30 unit SQ DAILY #10 ml Physician Discharge Instructions: PROBLEM: Diabetic ketoacidosis GOAL: Clear understanding of disease process, avoid future recurrences of DKA INSTRUCTIONS: Take your medications as prescribed. New prescription for insulin has been sent to the [facility] you requested with several refills. Please follow-up with your PCP for further management and monitoring of your diabetes. Additionally, your labs show that you have iron deficiency anemia. I recommend that you start taking [id number] ferrous sulfate 325 mg daily. This should also be evaluated and monitored by your primary care provider. Diet: Diabetic carb controlled Activity: Resume normal activities as tolerated Followup: NONE,NONE [Primary Care Provider] -
[2025-02-14 11:02] VITALS: BP 128/66
[2025-02-14] MEDS ORDERED: INSULIN GLARGINE 100 UNIT/ML SQ SCH (15:00)
== END 2025-02-14 11:46 | disposition home or self-care (01) | DRG 638 ==
LOC: ER 10:44 → 3RD-ICU 13:01
PROVIDERS: ADMIT Hospitalist; ATTEND Hospitalist
PROC: 4A033R1 Measurement of Arterial Saturation, Peripheral, Percutaneous Approach (ICD-10-PCS; principal; 2025-02-13)
DX: E10.10 Type 1 diabetes mellitus with ketoacidosis without coma (principal); E87.1 Hypo-osmolality and hyponatremia; N17.9 Acute kidney failure, unspecified; R64 Cachexia; Z68.1 Body mass index [BMI] 19.9 or less, adult; E86.0 Dehydration; E87.5 Hyperkalemia; D50.9 Iron deficiency anemia, unspecified; Z79.4 Long term (current) use of insulin
CPT/HCPCS: 36415; 36600; 71045; 71250; 74176; 80048; 80061; 80076; 82010; 82607; 82728; 82805; 82947; 83036; 83540; 83605; 83690; 83735; 84100; 84466; 84484; 85025; 87040; 93005; 99285; J0696; J1644; J1815; J7030; J7799